=== PATIENT | female | born 1975 | race Caucasian/White ===

== ENCOUNTER 2017-02-21 09:58 | Emergency (ER) | payer MEDICAID ==
[~2017-02-21] VITALS: Ht 152.4 cm; Wt 78.2 kg
[2017-02-21 10:02] VITALS: BP 135/88
[2017-02-21] MEDS ORDERED: INSU100V5 SQ-INSULIN (10:50)
[2017-02-21] MEDS ORDERED: METF10002 PO (10:50)
[2017-02-21] MEDS ORDERED: MECLIZINE CHEWABLE 25 MG TAB ONE (11:07)
[2017-02-21] MEDS ORDERED: MECLIZINE CHEWABLE 25 MG TAB PO ONE (11:30)
== END 2017-02-21 11:26 | disposition home or self-care (01) ==
LOC: ED 11:20
DX: H81.10 Benign paroxysmal vertigo, unspecified ear (principal)
CPT/HCPCS: 93005; 99283

== ENCOUNTER 2017-06-03 14:54 | Emergency (ER) | payer MEDICAID, OTHER ==
[~2017-06-03] VITALS: Ht 152.4 cm; Wt 79.8 kg
[~2017-06-03 14:54] MED LIST: INSU100V5 SQ-INSULIN; METF10002 PO
[2017-06-03 14:55] VITALS: BP 133/84
[2017-06-03] MEDS ORDERED: INSU100V8 SQ (15:31)
[2017-06-03] MEDS ORDERED: LISI2.5T PO (15:32)
== END 2017-06-03 16:17 | disposition home or self-care (01) ==
LOC: ED 16:11
DX: M72.2 Plantar fascial fibromatosis (principal); E11.9 Type 2 diabetes mellitus without complications
CPT/HCPCS: 82962; 99284

== ENCOUNTER 2017-08-31 11:30 | Emergency (ER) | payer SELFPAY ==
[~2017-08-31] VITALS: Ht 152.4 cm; Wt 78.9 kg
[~2017-08-31 11:30] MED LIST changes: +INSU100V8 SQ; +LISI2.5T PO
[2017-08-31] MEDS ORDERED: SODIUM CHLORIDE 0.9% 1,000ML IVBOLUS ONE ×2 (13:00→15:00)
[2017-08-31 13:25] LABS: PH, VENOUS 7.393 pH (7.320-7.420)
[2017-08-31 13:26] LABS: HEMATOCRIT 41.5 % (34.6-47.8); HEMOGLOBIN 14.2 g/dL (11.7-16.4); WHITE BLOOD COUNT 9.1 x10^3/uL (3.4-10)
[2017-08-31 13:37] LABS: BLOOD UREA NITROGEN 11 mg/dL (7-18)
[2017-08-31 13:43] LABS: ASPARTATE AMINO TRANSFERASE 20 U/L (15-37)
[2017-08-31] MEDS ORDERED: HYDROmorphone 1 MG/ML, 1ML ONE (13:52)
[2017-08-31] MEDS ORDERED: ONDANSETRON 2MG/ML, 2ML ONE (13:52)
[2017-08-31] MEDS ORDERED: ONDANSETRON 2MG/ML, 2ML IVPush ONE (14:00)
[2017-08-31] MEDS ORDERED: SODIUM CHLORIDE FLUSH 10ML SYR IVF ONE (14:00)
[2017-08-31] MEDS ORDERED: HYDROmorphone 1 MG/ML, 1ML IVPush PRN (14:00)
[2017-08-31 14:04] LABS: PATH.CAST-FLAG NOT PRESENT; SPERM-FLAG NOT PRESENT; SRC-FLAG NOT PRESENT; XTAL-FLAG NOT PRESENT; YLC-FLAG NOT PRESENT
[2017-08-31] MEDS ORDERED: MAALOX/HYOSCYAMINE/LIDOCAINE 45 ML BTL PO ONE (14:30)
[2017-08-31] MEDS ORDERED: MAALOX/HYOSCYAMINE/LIDOCAINE 45 ML BTL ONE (15:04)
[2017-08-31] MEDS ORDERED: ACETAMINOPHEN 500 MG TABLET ONE (15:19)
[2017-08-31] MEDS ORDERED: ACETAMINOPHEN 500 MG TABLET PO ONE (15:30)
[2017-08-31] MEDS ORDERED: OMNIPAQUE 350 MG/ML, 100ML BOTTLE ONE (16:47)
[2017-08-31 17:53] VITALS: BP 91/46
== END 2017-08-31 18:05 | disposition home or self-care (01) ==
LOC: ED 17:59
DX: K29.00 Acute gastritis without bleeding (principal); E11.65 Type 2 diabetes mellitus with hyperglycemia; E66.9 Obesity, unspecified
CPT/HCPCS: 36415; 74177; 76700; 80053; 81001; 82010; 82803; 82962; 83690; 84703; 85025; 96361; 96374; 96375; 99285; J1170; J2405; J7030; Q9967

== ENCOUNTER 2019-11-16 20:10 | Emergency (ER) | payer MEDICAID, OTHER ==
[~2019-11-16] VITALS: Ht 152.4 cm; Wt 81.1 kg
[2019-11-16] MEDS ORDERED: KETOROLAC 30 MG/1 ML ONE (20:55)
[2019-11-16] MEDS ORDERED: KETOROLAC 30 MG/1 ML IM ONE (21:00)
[2019-11-16 21:39] VITALS: BP 155/95
== END 2019-11-16 21:50 | disposition home or self-care (01) ==
LOC: ED 21:10
DX: K01.1 Impacted teeth (principal); E11.9 Type 2 diabetes mellitus without complications; Z90.49 Acquired absence of other specified parts of digestive tract; Z98.51 Tubal ligation status
CPT/HCPCS: 93005; 96372; 99283; J1885